=== PATIENT | female | born 1965 | race Caucasian/White ===

== ENCOUNTER 2022-02-24 16:30 | Emergency (ER) | payer SELFPAY ==
[~2022-02-24] VITALS: Ht 160 cm; Wt 59.0 kg
[2022-02-24 16:35] VITALS: BP 126/62
== END 2022-02-24 23:09 | disposition left against medical advice (07) ==
LOC: ER 16:30 → EDSEX 16:30 → ER 23:09
DX: Z53.21 Procedure and treatment not carried out due to patient leaving prior to being seen by health care provider (principal)